=== PATIENT | male | born 1970 | race Two or more races ===

== ENCOUNTER 2024-11-06 13:01 | Emergency (ER) | payer MEDICAID, SELFPAY ==
[2024-11-06 14:10] VITALS: BP 170/93; PULSE 54; RESP 20; TEMP 37.3; O2SAT 98
--- NOTE | 2024-11-06 14:40 | EDNOTE_ITS ---
ED Abdominal Pain RME/HPI General Chief Complaint: General Adult/Misc Complain Stated complaint: R) FLANK PAIN, STARTED LAST NIGHT Time seen by provider: 11/06/24 14:21 Arrival date/time: 11/06/24 13:01 Limitations: no limitations RME / HPI RME / HPI narrative: DR. GONZALES MAIN ED EVALUATION: 54 year old male with past medical history significant for kidney stones a year ago presents to the Emergency Department with complaint of right flank pain since last night. Pain is described as aching and rated severe. No fevers or chills. No dysuria, no hematuria, or other urinary symptoms. Denies any hypertension or diabetes history. No known allergies. Related Data Previous Rx's ?Medication ?Instructions ?Recorded acetaminophen 500 mg tablet 1,000 mg (2 x 500 mg) PO Q 6H PRN 11/06/24 pain 5 days #30 tabs ibuprofen 600 mg tablet 600 mg PO Q6H PRN pain #20 t abs 11/06/24 oxycodone 5 mg capsule 5 mg PO Q8H PRN pain #7 caps 11/06/24 Allergies Allergy/AdvReac Type Severity Reaction Status Date / Time No Known Allergies Allergy Verified 11/06/24 13:05 Review of Systems Review of Systems Systems Reviewed: All systems reviewed, normal except as documented Narrative Review of Systems: GEN: No fever, no chills, no weight loss EYES: No discharge, no visual changes, no pain HEENT: No ear pain, no congestion, no sore throat PULM: No shortness of breath, no cough, no congestion CV: No chest pain, no dyspnea on exertion, no palpitations GI: No nausea, no vomiting, no diarrhea, + right flank pain, no constipation : No frequency, no urgency and no dysuria MUSC/SKEL: No joint pain, no back pain SKIN: No rash PSYCH: No hallucinations, no depression HEME/LYMPH: No easy bleeding or bruising tendencies NEURO: No weakness, no headache Past Medical History Social History SMOKING STATUS: Former smoker SUBSTANCE USE: does not use ALCOHOL: Never ED Exam General Limitations: Present no limitations General appearance: Present alert and in no apparent distress Head Head exam: Present atraumatic, normocephalic and normal inspection Eye Eye exam: Present normal appearance, PERRL and EOMI ENT ENT exam: Present normal exam, normal oropharynx and mucous membranes moist Neck Neck exam: Present normal inspection, full ROM and trachea midline Chest Chest inspection: Present normal inspection and symmetric chest wall rise Respiratory Respiratory exam: Present normal lung sounds bilaterally Cardiovascular Cardiovascular exam: Present regular rate, normal rhythm and normal heart sounds Abdominal Exam Abdominal exam: Present soft and normal bowel sounds Extremities Exam Extremities exam: Present normal inspection and full ROM Back Exam Back exam: Present normal inspection and full ROM; Absent CVA tenderness (R) or CVA tenderness (L) Neurological Exam Neurological exam: Present alert, oriented X3 and CN II-XII intact Psychiatric Psychiatric exam: Present normal affect and normal mood Skin Skin exam: Present warm, dry, intact and normal color Course Quality Measures none Orders Category Date Time Status Insert IV STAT Care 11/06/24 15:[address] abdomen pelvis wo con Stat Exams 11/06/24 15:20 Completed CBC Stat Lab 11/06/24 15:35 Completed Comprehensive Metabolic Panel Stat Lab 11/06/24 15:35 Completed Lipase Stat Lab 11/06/24 15:35 Completed Magnesium Stat Lab 11/06/24 15:35 Completed Urinalysis Stat Lab 11/06/24 16:09 Completed Ketorolac Inj [Toradol Inj] Med 11/06/24 15:17 Discontinued 30 mg IM X1 ONE Ondansetron Inj [Zofran Inj] Med 11/06/24 15:17 Discontinued 4 mg IV Q1H PRN Vital Signs Vital signs: Vital Signs Temperature 99.2 F 11/06/24 14:10 Pulse Rate 54 L 11/06/24 14:10 Respiratory Rate 20 11/06/24 14:10 Blood Pressure 170/93 H 11/06/24 14:10 Pulse Oximetry (%) 98 11/06/24 14:10 Oxygen Delivery Method Room Air 11/06/24 14:10 Abdominal Pain MDM MDM Narrative MDM Narrative:: IRhonda am scribing for and in the presence of Dr. Gonzales. Patient data External records reviewed:: None Clinical information provided by:: patient Social determinants that could affect healthcare access:: none Patient has the following chronic illnesses:: kidney stones a year ago How is presenting disease/condition affected by chronic disease/condition?: exacerbated by Evaluation data The following diagnostics were reviewed and interpreted by me:: lab results and radiology exam(s) Lab and/or radiology exams considered but not ordered:: none Interpretation Summary: pending Medications / Prescriptions Medications or Prescriptions considered but not ordered:: none Medication administrations:: Medication Administration History Discontinued Medications Ketorolac Tromethamine (Ketorolac Inj 30 Mg/Ml Vial) 30 mg IM X1 ONE Stop: 11/06/24 15:18 Last Admin: 11/06/24 15:43 Dose: 30 mg Documented By: LOKESH Ondansetron HCl (Ondansetron Inj 2 Mg/Ml Inj 2 Ml) 4 mg IV Q1H PRN PRN Reason: PERSISTENT NAUSEA OR VOMITING see above Consultations Consultation(s) initiated? (list below): No Diagnosis Differential diagnosis abdominal pain: calculus of kidney and other (pyelonephritis, UTI) Most likely diagnosis given after review of the tests above:: No official diagnoses at this time, still pending diagnostic tests. Patient signout to the machinist 2nd shift provider. Admission Indicated Admission indicated?: not indicated Explain why admission is indicated or not indicated:: No final disposition plan at this time, still pending diagnostic tests. Patient signout to the machinist 2nd shift provider. Admission Request Was there a request for admission?: No Disposition Plan Disposition Plan: other (specify) (Patient signout to the machinist 2nd shift provider, pending abdomen/pelvis CT and final disposition.) Discharge Plan Plan Patient Disposition: HOME (Self Care) Disposition Comment: Stable for discharge home Patient condition on transfer: Stable Prescriptions/Referrals Prescriptions/Med Rec: New ibuprofen 600 mg tablet 600 mg PO Q6H PRN (Reason: pain) Qty: 20 0RF acetaminophen 500 mg tablet 1,000 mg PO Q6H PRN (Reason: pain) 5 Days Qty: 30 0RF oxycodone 5 mg capsule 5 mg PO Q8H MDD 3 PRN (Reason: pain) Qty: 7 0RF Referrals: [facility] [Provider Group] - In 1 week Problem List Clinical Impression: Renal colic Patient/Caregiver Discharge Instructions Discharge Activity: activity as tolerated Education Materials: Anatomy of the Male Urinary Tract, ED Kidney Stone w/ Colic Additional Instructions: Please return to the emergency department if you have any worsening or any further medical problems and we will help you. Otherwise you should follow-up with your primary care doctor or in the family [facility] within the next several days You have 3 prescriptions waiting for you at the pharmacy. One of them is called oxycodone. You cannot drive after taking this medication and it is best taken before you go to bed. The other 2 are acetaminophen and ibuprofen. You can take these medicines every 6 hours as needed for pain. You should follow-up and see a urologist. That is a specialist in kidney stones. Please ask your doctor or the [facility] clinic doctor to refer you to a urology Print Language: Faroese
--- NOTE | 2024-11-06 15:20 | XR_ITS ---
Examination: CT abdomen and pelvis without contrast. Coronal 3-D reconstructions. Sagittal 2-D reconstructions. Date and time of exam:November 06, 2024 1728 hrs. Comparison June 25, 2004 Indications: Abdominal pain beginning 3 days ago CTDI: vol (mGy): 8.15 DLP: (mGycm): 492 Technique: Axial images of the abdomen have been obtained, 3 mm slice thickness Intravenous contrast material has not been administered. Low dose protocols were performed. One or more of the following dose reduction techniques were used; automated exposure control, adjustment of the mA and/or KV according to patient size, use of iterative reconstruction technique. Findings: No focal liver or splenic lesions No gallstones No pancreatic mass Numerous bilateral renal calculi, the largest is in the right kidney 6 mm Mild right hydronephrosis secondary to 6 mm proximal right ureteral calculus Normal appendix No bowel obstruction Intact urinary bladder Mild osteopenia Impression: Mild right hydronephrosis secondary to 6 mm proximal right ureteral calculus
[2024-11-06] MEDS: KETOROLAC INJ 30 MG/ML VIAL IM (15:43)
[2024-11-06 16:12] LABS: Basophils % (Auto) 0 % (0-2.5); Eosinophils # (Auto) 0.2 Thou/mm3 (0.0-0.5); Eosinophils % (Auto) 1 % (0-10); Hemoglobin 13.8 g/dL (13.5-16.0); Immature Granulocytes % (Auto) 1 % (0-0); Immature Granulocytes Auto 0.13 Thou/mm3 (0.00-0.00); Lymphocytes # (Auto) 1.9 Thou/mm3 (1.0-4.8); Lymphocytes % (Auto) 15 % (10-50); Mean Corpuscular HGB Conc 35.4 g/dl (31.0-37.0); Mean Corpuscular Hemoglobin 31.8 pg (25.0-35.0); Mean Corpuscular Volume 90 fL (80-100); Monocytes # (Auto) 1.1 Thou/mm3 (0.0-0.8); Monocytes % (Auto) 8 % (0-12); Neutrophils # (Auto) 9.4 Thou/mm3 (1.8-7.7); Neutrophils % (Auto) 74 % (37-80); Nucleated Red Blood Cell % 0 /100 WBC (0); Platelet Count 183 Thou/mm3 (140-440); RDW Standard Deviation 43.1 fL (35.1-43.9); Red Blood Count 4.34 Miln/mm3 (4.50-5.90); White Blood Count 12.8 Thou/mm3 (3.8-10.6)
[2024-11-06 16:41] LABS: Alanine Aminotransferase 22 U/L (10-49); Albumin, Serum 4.4 gm/dL (3.5-5.0); Albumin/Globulin Ratio 1.6 (1.2-2.2); Alkaline Phosphatase 59 U/L (46-116); Anion Gap 7 (7-16); Aspartate Amino Transferase 26 U/L (0-34); BUN/Creatinine Ratio 15 Ratio (12-20); Bilirubin,Total 0.9 mg/dL (0.3-1.2); Blood Urea Nitrogen 18 mg/dL (9-23); Calcium 9.4 mg/dL (8.3-10.6); Calcium (Corrected) 9.4 mg/dL (8.5-10.1); Carbon Dioxide 28.3 mMol/L (20.0-31.0); Chloride 100 mMol/L (98-107); Creatinine (Component) 1.2 mg/dL (0.6-1.3); Globulin 2.8 gm/dL (2.3-3.5); Glucose 99 mg/dL (74-106); Lipase 37 U/L (12-53); Magnesium 1.8 mg/dL (1.6-2.6); Osmolality,Calculated 272 (275-295); Potassium 4.7 mMol/L (3.4-5.1); Sodium 135 mMol/L (136-145); Total Protein 7.2 gm/dL (5.7-8.2); eGFR > 60 See Note
[2024-11-06 17:00] LABS: Collection Type, Urine Clean Catch
[2024-11-06 17:40] LABS: Bilirubin,Urine Negative (Negative); Blood,Urine 2+ (Negative); Clarity,Urine Clear (Clear/Hazy); Color,Urine Drk-Yellow (Lt Yel-Yel); Glucose, Urine Negative (Negative); Ketones,Urine Negative (Negative); Leukocyte Esterase,Urine Negative (Negative); Nitrite,Urine Negative (Negative); PH,Urine 6.5 (5.0-7.0); Protein,Urine Negative (Neg - Trace); RBC,Urine 65 /hpf (0-3); Specific Gravity,Urine 1.022 (1.001-1.035); Squamous Epithelial Cell,Urine < 1 /hpf (0-5); Urobilinogen,Urine Negative mg/dL (0.0-1.0); WBC,Urine 1 /hpf (0-5)
--- NOTE | 2024-11-06 18:32 | EDNOTE_ITS ---
Emergency Room Addendum Addendum Narrative: 1800: Care assumed from Dr. Costello, the previous shift emergency physician. Past medical, surgical, social and family history reviewed. Vitals and home medications reviewed. Results and treatment plan discussed. I will assume the care of the patient at this time and will follow the patient, pending CT abdomen pelvis. Please refer to the emergency department record for history and examination from initial visit. 1906: I went to look for the patient in the lobby, and there was no answer. 2028: I was notified the patient was back in the lobby. I discussed results with him using a pack press operator. Patient does report having a history of kidney stones. He denies any pain at this time. Patient is stable to be discharged home and is to follow-up with a urologist as an outpatient. Return precautions given and the patient verbalized understanding. RADIOLOGY RESULTS: [facility] Report Signed Patient: WING POND Record#: [id number] Birthdate: 1970 Age/Sex: 54 / M Location: [facility] Attending Dr: Ordering Physician: Triston Costello MD Date of Service: 11/06/24 Procedure(s): CT abdomen pelvis wo con Accession Number(s): [id number] cc: Triston Costello MD; Dimas Isaacs MD; NO PRIMARY/FAMILY,PHYSICIAN~ Examination: CT abdomen and pelvis without contrast. Coronal 3-D reconstructions. Sagittal 2-D reconstructions. Date and time of exam:November 06, 2024 1728 hrs. Comparison June 25, 2004 Indications: Abdominal pain beginning 3 days ago CTDI: vol (mGy): 8.15 DLP: (mGycm): 492 Technique: Axial images of the abdomen have been obtained, 3 mm slice thickness Intravenous contrast material has not been administered. Low dose protocols were performed. One or more of the following dose reduction techniques were used; automated exposure control, adjustment of the mA and/or KV according to patient size, use of iterative reconstruction technique. Findings: No focal liver or splenic lesions No gallstones No pancreatic mass Numerous bilateral renal calculi, the largest is in the right kidney 6 mm Mild right hydronephrosis secondary to 6 mm proximal right ureteral calculus Normal appendix No bowel obstruction Intact urinary bladder Mild osteopenia Impression: Mild right hydronephrosis secondary to 6 mm proximal right ureteral calculus Dictated By: Dimas Isaacs MD Signed By: <Electronically signed by Dimas Isaacs MD in [place]> 11/06/24 1135
== END 2024-11-06 22:27 | disposition home or self-care (01) ==
PROVIDERS: Family Medicine; Emergency Provider Emergency Medicine
DX: N13.2 Hydronephrosis with renal and ureteral calculous obstruction (principal)
CPT/HCPCS: 36415; 74176; 80053; 81001; 83690; 83735; 85025; 99284; J1885